=== PATIENT | male | born 1980 | race Caucasian/White ===

== ENCOUNTER 2020-10-13 00:09 | Inpatient (IN) | payer OTHER ==
[2020-10-13] MEDS ORDERED: DEXAMETHASONE SOD PHOSPHATE 10 MG/ML 1 ML VIAL IV STA (00:25)
[2020-10-13] MEDS ORDERED: AMPICILLIN-SULBACTAM 3 GM in SODIUM CHLORIDE 0.9% 100 ML IVPB STA (00:26)
[2020-10-13] MEDS ORDERED: SODIUM CHLORIDE 0.9% 1,000 ML IV STA (00:26)
--- NOTE | 2020-10-13 00:26 | ED ---
ENT HPI - General Chief complaint: ENT Stated complaint: Face abscess Time Seen by Provider: 10/13/20 00:22 Source: patient, RN notes reviewed, old records reviewed Mode of arrival: ambulatory Limitations: no limitations - History of Present Illness Initial comments: This is a 40-year-old male DF for evaluation. Patient recently diagnosed with dental infection and abscess on antibiotics has severe worsening pain and swelling today significant left sided facial swelling eye swelling with tooth pain. No fevers. Able to eat and drink, patient was taking antibiotics without difficulty, does have history of dental caries MD complaint: tooth pain, other (left sided facial swelling) -: days(s) Location: L ear, tooth #, upper lip Severity: severe Severity scale (1-10): 8 Quality: aching Consistency: constant Improves with: none Worsens with: none Context- Dental: history of dental caries Context- Ear: recent illness Associated Symptoms: pain with swallowing - Related Data Allergies Allergy/AdvReac Type Severity Reaction Status Date / Time No Known Allergies Allergy Verified 10/13/20 00:16 Review of Systems ROS Statement: Those systems with pertinent positive or pertinent negative responses have been documented in the HPI. ROS Other: All systems not noted in ROS Statement are negative. Past Medical History Past Medical History: No Reported History History of Any Multi-Drug Resistant Organisms: None Reported Past Surgical History: No Surgical Hx Reported Past Psychological History: PTSD, Schizoaffective Disorder Smoking Status: Current every day smoker Past Alcohol Use History: Rare Past Drug Use History: None Reported General Exam - General Exam Comments Initial Comments: left sided facial edema Limitations: no limitations General appearance: alert, in no apparent distress Head exam: Present: atraumatic, normocephalic, normal inspection Eye exam: Present: normal appearance, PERRL, EOMI. Absent: scleral icterus, conjunctival injection, periorbital swelling ENT exam: Present: normal exam, mucous membranes moist Neck exam: Present: normal inspection. Absent: tenderness, meningismus, lymphadenopathy Respiratory exam: Present: normal lung sounds bilaterally. Absent: respiratory distress, wheezes, rales, rhonchi, stridor Cardiovascular Exam: Present: regular rate, normal rhythm, normal heart sounds. Absent: systolic murmur, diastolic murmur, rubs, gallop, clicks GI/Abdominal exam: Present: soft, normal bowel sounds. Absent: distended, tenderness, guarding, rebound, rigid Extremities exam: Present: normal inspection, full ROM, normal capillary refill. Absent: tenderness, pedal edema, joint swelling, calf tenderness Back exam: Present: normal inspection Neurological exam: Present: alert, oriented X3, CN II-XII intact Psychiatric exam: Present: normal affect, normal mood Skin exam: Present: warm, dry, intact, normal color. Absent: rash Course Vital Signs 10/13/20 00:11 Temperature 97.6 F Pulse Rate 103 H Respiratory 16 Rate Blood Pressure 131/82 O2 Sat by Pulse 97 Oximetry - Reevaluation(s) Reevaluation #1: 10/13/20 00:50 medical record is reviewed Reevaluation #2: 10/13/20 00:51 patient smyptoms minorily improved Reevaluation #3: 10/13/20 03:13 Patient informed results and questions answered - Consultations Consultation #1: Spoke with Dr. Pittman does not think this is a dental disease Consultation #2: Spoke with Dr. Echeverria ENT who will see the patient for Consultation #3: Spokeek with ritchie who will admit the patient Medical Decision Making - Medical Decision Making 40 male DEL with left maxillary abscess and soft tissue facial swelling and edema. Patient will be admitted for IV antibiotics and ENT to evaluate - Lab Data Result diagrams: 10/13/20 00:39 10/13/20 00:39 Lab Results 10/13/20 10/13/20 Range/Units 00:39 00:39 WBC 22.0 H (3.8-10.6) k/uL RBC 5.08 (4.30-5.90) m/uL Hgb 13.5 (13.0-17.5) gm/dL Hct 41.3 (39.0-53.0) % MCV 81.2 (80.0-100.0) fL MCH 26.7 (25.0-35.0) pg MCHC 32.8 (31.0-37.0) g/dL RDW 14.1 (11.5-15.5) % Plt Count 231 (150-450) k/uL MPV 8.7 Neutrophils % 67 % Lymphocytes % 25 % Monocytes % 5 % Eosinophils % 1 % Basophils % 0 % Neutrophils # 14.7 H (1.3-7.7) k/uL Lymphocytes # 5.5 H (1.0-4.8) k/uL Monocytes # 1.0 (0-1.0) k/uL Eosinophils # 0.3 (0-0.7) k/uL Basophils # 0.1 (0-0.2) k/uL Manual Slide Review Performed Large Platelets Present Sodium 138 (137-145) mmol/L Potassium 3.7 (3.5-5.1) mmol/L Chloride 104 (98-107) mmol/L Carbon Dioxide 25 (22-30) mmol/L Anion Gap 9 mmol/L BUN 16 (9-20) mg/dL Creatinine 0.78 (0.66-1.25) mg/dL Est GFR (CKD-EPI)AfAm >90 (>60 ml/min/1.73 sqM) Est GFR (CKD-EPI)NonAf >90 (>60 ml/min/1.73 sqM) Glucose 129 H (74-99) mg/dL Calcium 9.7 (8.4-10.2) mg/dL Phosphorus 3.9 (2.5-4.5) mg/dL Magnesium 2.0 (1.6-2.3) mg/dL C-Reactive Protein 3.1 H (<1.0) mg/dL - Radiology Data Radiology results: report reviewed (CT facial bones does show left maxillary abscess, sinusitis), image reviewed Disposition Clinical Impression: Facial abscess, Cellulitis and abscess of face, Sinusitis Disposition: ADMITTED IP TO THIS [facility] Condition: Good Is patient prescribed a controlled substance at d/c from ED?: No Referrals: Nonstaff,Physician [REFERRING] - 1-2 days
[2020-10-13 01:11] LABS: African American GFR (CKD) >90 (>60 ml/min/1.73 sqM); Anion Gap 9 mmol/L; Blood Urea Nitrogen 16 mg/dL (9-20); C Reactive Protein 3.1 mg/dL (<1.0); Calcium 9.7 mg/dL (8.4-10.2); Carbon Dioxide 25 mmol/L (22-30); Chloride 104 mmol/L (98-107); Glucose 129 mg/dL (74-99); Non-African American GFR(CKD) >90 (>60 ml/min/1.73 sqM); Phosphorus 3.9 mg/dL (2.5-4.5); Potassium 3.7 mmol/L (3.5-5.1); Sodium 138 mmol/L (137-145)
--- NOTE | 2020-10-13 01:45 | CT ---
EXAMINATION TYPE: CT facial bones w con DATE OF EXAM: 10/13/2020 COMPARISON: None HISTORY: left side facial abscess. no prior on PACS CT DLP: 403.1 mGycm Automated exposure control for dose reduction was used. CONTRAST: Performed with IV Contrast, patient injected with 100ml mL of Isovue 300. Images were obtained from the bottom of the mandible to the top of the frontal sinuses with IV contra st. Submandibular salivary glands are symmetric. The mandibular ring is intact. Temporomandibular joints appear normal. Zygomatic arches appear normal. Nasal bone is intact. Maxilla is intact. There is irregular 1.5 cm fluid density focus anterior to the left maxilla near the nose. This is con sistent with an abscess. There is extensive fat stranding in the soft tissues anterior to the left ma xilla and extending superiorly to the left periorbital region. I see no bone destruction of the nasal bone. The parotid glands are symmetric. The orbital margins are intact. There is no retro-orbital mass. The re is some mild mucosal thickening at the floor the left maxillary sinus. There is no evidence of a b lowout fracture. IMPRESSION: Extensive changes on the left side consistent with cellulitis anterior to the left maxilla and left o rbit. There is evidence of a 1.5 cm abscess adjacent to the maxilla near the nose. No bone destructio n seen. No fracture. No retro-orbital abnormality. Minimal left maxillary sinusitis.
[2020-10-13 02:07] LABS: Basophils # (A) 0.1 k/uL (0-0.2); Basophils % (A) 0 %; Eosinophils # (A) 0.3 k/uL (0-0.7); Eosinophils % (A) 1 %; HCT 41.3 % (39.0-53.0); HGB 13.5 gm/dL (13.0-17.5); Lymphocytes # (A) 5.5 k/uL (1.0-4.8); Lymphocytes % (A) 25 %; MCH 26.7 pg (25.0-35.0); MCHC 32.8 g/dL (31.0-37.0); MCV 81.2 fL (80.0-100.0); Mean Platelet Volume 8.7; Monocytes % (A) 5 %; Neutrophils # (A) 14.7 k/uL (1.3-7.7); Neutrophils % (A) 67 %; Platelet Count 231 k/uL (150-450); RBC 5.08 m/uL (4.30-5.90); RDW 14.1 % (11.5-15.5)
[2020-10-13 03:08] LABS: Large Platelets Present
[2020-10-13] MEDS ORDERED: VANCOMYCIN IV PER PHARMACY 1 EACH MISC MISCELLANE PRN (04:04)
--- NOTE | 2020-10-13 04:06 | P.HPIM ---
History of Present Illness H&P Date: 10/13/20 Patient is a 40-year-old male with a PMH of tobacco abuse, schizoaffective disorder, and PTSD who presented to the emergency room with complaints of facial swelling and pain. The patient reports that his symptoms started roughly a week ago, and have gradually progressed. He reports being seen in urgent care facility 5 days ago and was prescribed clindamycin and a course of prednisone. The patient reports that initially his symptoms did improve for 1-2 days after initiation of the above medications but then subsequently began worsening again. At time of interview, he reports a 5 out of 10 left-sided diffuse facial pain. He reports difficulty seeing out of the left eye due to the swelling but is denied blurred vision or eye pain. Denied pain with movement of his left eye. He reports no difficulty with eating or drinking. Denied headaches, weakness, numbness, tingling. Also denied shortness of breath or difficulty swallowing. Reports a history of dental infections. In the emergency room, facial CT revealed cellulitis anterior to the left maxilla and left orbit with a 1.5 cm a bscess adjacent to the maxilla near the nose. No retro-orbital abnormality or bone destruction was seen. Laboratory evaluation was remarkable for WBC count of 22, glucose 129, and CRP of 3.1. Emergency room physician notes that he discussed the case with ENT physician computer numerical control programmer who noted that he will see the patient tomorrow for possible drainage. Review of systems: Pertinent positives and negatives as discussed in HPI, a complete review of systems was performed and all other systems are negative. Physical examination: General: non toxic, no distress, appears at stated age, normal weight Derm: Significant left facial swelling, warm, dry Head: atraumatic, normocephalic, symmetric Eyes: EOMI, anicteric sclera, pupils equal round reactive to light ENT: Nose and ears atraumatic, no thrush, no pharyngeal erythema Neck: No thyromegaly, no cervical lymphadenopathy, trachea midline, supple Mouth: no lip lesion, mucus membranes moist Cardiovascular: S1S2 reg, no murmur, positive posterior tibial pulse bilateral, no edema, capillary refill less than 2 seconds Lungs: CTA bilateral, no rhonchi, no rales , no accessory muscle use Abdominal: soft, nontender to palpation, no guarding, no appreciable organomegaly, normal bowel sounds Ext: no gross muscle atrophy, muscle strength 5 out of 5 in all 4 extremities grossly, no contractures, Neuro: CN II-XI grossly intact, light touch intact all 4 extremities, finger to nose within normal limits, Psych: Alert, oriented, appropriate affect Assessment/plan Sepsis secondary to pre-septal facial cellulitis with abscess -Start vancomycin and continue with Unasyn -ENT consult -Check lactic acid levels -Continue the IV fluids -Follow up blood cultures DVT prophylaxis -Heparin subq The patient is admitted with an anticipated greater than 2 midnight stay for evaluation of facial cellulitis with abscess CODE STATUS: Full Code Discussed with: patient Anticipated discharge date: 2-[address]: Home A total of 45 minutes was spent on the care of this complex patient more than 50% of the time was spent in counseling and care coordination. Past Medical History Past Medical History: No Reported History History of Any Multi-Drug Resistant Organisms: None Reported Past Surgical History: No Surgical Hx Reported Past Psychological History: PTSD, Schizoaffective Disorder Smoking Status: Current every day smoker Past Alcohol Use History: Rare Past Drug Use History: None Reported Medications and Allergies Allergies Allergy/AdvReac Type Severity Reaction Status Date / Time No Known Allergies Allergy Verified 10/13/20 00:16 Physical Exam Vitals: Vital Signs Temp Pulse Resp BP Pulse Ox 10/13/20 00:11 97.6 F 103 H 16 131/82 97 Intake and Output 10/12/20 10/12/20 10/13/20 14:59 22:59 06:59 Other: Weight 70.307 kg Results CBC & Chem 7: 10/13/20 00:39 10/13/20 00:39 Labs: Abnormal Lab Results - Last 24 Hours (Table) 10/13/20 10/13/20 Range/Units 00:39 00:39 WBC 22.0 H (3.8-10.6) k/uL Neutrophils # 14.7 H (1.3-7.7) k/uL Lymphocytes # 5.5 H (1.0-4.8) k/uL Glucose 129 H (74-99) mg/dL C-Reactive Protein 3.1 H (<1.0) mg/dL
[2020-10-13] MEDS: SODIUM CHLORIDE 0.9% 1,000 ML IV SCH ×3 (04:55→23:50)
[2020-10-13] MEDS ORDERED: NALOXONE 0.4 MG/ML 1 ML VIAL IV PRN (04:57)
[2020-10-13] MEDS ORDERED: MORPHINE SULFATE 4 MG/ML SYRINGE IV PRN (04:57)
[2020-10-13] MEDS ORDERED: VANCOMYCIN 1,250 MG in SODIUM CHLORIDE 0.9% 250 ML IVPB ONE (05:00)
[2020-10-13 06:41] LABS: HCT 43.5 % (39.0-53.0); HGB 14.3 gm/dL (13.0-17.5); MCH 26.6 pg (25.0-35.0); MCHC 32.9 g/dL (31.0-37.0); Platelet Count 282 k/uL (150-450); RBC 5.38 m/uL (4.30-5.90); RDW 13.9 % (11.5-15.5); WBC 17.5 k/uL (3.8-10.6)
[2020-10-13 06:54] LABS: African American GFR (CKD) >90 (>60 ml/min/1.73 sqM); Anion Gap 7 mmol/L; Blood Urea Nitrogen 14 mg/dL (9-20); Calcium 9.9 mg/dL (8.4-10.2); Carbon Dioxide 27 mmol/L (22-30); Chloride 108 mmol/L (98-107); Glucose 141 mg/dL (74-99); Non-African American GFR(CKD) >90 (>60 ml/min/1.73 sqM); Potassium 5.3 mmol/L (3.5-5.1); Sodium 142 mmol/L (137-145)
[2020-10-13] MEDS: AMPICILLIN-SULBACTAM 3 GM in SODIUM CHLORIDE 0.9% 100 ML IVPB SCH ×4 (08:45→23:52)
[2020-10-13] MEDS: HEPARIN SODIUM,PORCINE/PF 5,000 UNIT/0.5 ML SYRINGE SQ SCH ×3 (09:26→23:45)
--- NOTE | 2020-10-13 12:23 | P.PN ---
Progress Note - Text Progress Note Date: 10/13/20 I saw and evaluated the patient independently today. I agree with the documented assessment and plan by my colleague earlier this morning. Medication reconciliation is pending medication history
[2020-10-13] MEDS: VANCOMYCIN 1,000 MG in SODIUM CHLORIDE 0.9% 250 ML IVPB SCH ×2 (13:46→21:42)
[2020-10-13] MEDS: DEXAMETHASONE SOD PHOSPHATE 10 MG/ML 1 ML VIAL IV SCH ×2 (16:19→23:44)
[2020-10-13] MEDS: QUEtiapine 100 MG TAB PO SCH (16:20)
[2020-10-13] MEDS: hydrOXYzine HCL 25 MG TAB PO SCH ×2 (16:26→23:44)
[2020-10-13] MEDS: LITHIUM CARBONATE 300 MG CAP PO SCH (16:26)
[2020-10-13] MEDS: QUEtiapine 400 MG TAB PO SCH (20:50)
[2020-10-13] MEDS: clonazePAM 1 MG TAB PO SCH (20:50)
[2020-10-13] MEDS: OXYMETAZOLINE 0.05% NASL SPRAY 1 SPRAY BOTTLE NASAL SCH (20:50)
[2020-10-13] MEDS: LITHIUM CARBONATE ER 450 MG TABLET.ER PO SCH (20:51)
[2020-10-13] MEDS: BENZTROPINE MESYLATE 1 MG TAB PO SCH (20:51)
[2020-10-14] MEDS: VANCOMYCIN 1,000 MG in SODIUM CHLORIDE 0.9% 250 ML IVPB SCH ×2 (04:47→17:12)
--- NOTE | 2020-10-14 06:26 | CONS ---
CONSULTATION DATE OF CONSULTATION: 10/13/2020 REASON FOR CONSULTATION: Left facial abscess. HISTORY OF PRESENT ILLNESS: Patient is a pleasant 40-year-old male who was admitted via [facility] Emergency Room with complaint of left facial swelling and pain. His symptoms began approximately a week ago and at that time he was diagnosed with a dental infection with abscess. He was treated with oral antibiotics, namely Cleocin, and steroids. The patient did well until he ran out of medication. He does not recall how many days he was on the medication. Because of the symptoms coming back and getting worse, he came to [facility] Emergency Room. He was complaining of left facial pain, swelling, and at that time, his left eye was almost swollen shut. He was also complaining of tooth pain in the area of his left upper canine. He was afebrile at the time. His WBC was approximately 22,000 . The ER physician examined him and found that he had the area of tenderness in the region of the left nasal labial fold with firmness and fluctuation. CT scan of the facial bones revealed cellulitis and abscess anterior to left maxillary sinus. There was no evidence any air/fluid level in the left maxillary sinus. I was contacted at approximately 3:00 am by the emergency room doctor. However, the physician's description of the patient's symptoms and his CT scan were somewhat confusing. He thought that the patient had a maxillary sinus abscess. Therefore, I advised the ER physician the best thing would be to admit this patient and place him on an antibiotic. He was placed on Unasyn and vancomycin and admitted to the hospital for definitive treatment. At the at the time that I spoke with the ER physician at 3:00 am in the morning, he did not feel the patient had any carious teeth. However, upon further discussion with the patient, the patient states that he has a history of having multiple dental caries, which he has not had treated. PAST MEDICAL HISTORY: Reveals he has no known allergies. MEDICATIONS: His home medications are mainly psychiatric medications and include Atarax, Klonopin, Seroquel, lithium, and Cogentin. There is no history of asthma, diabetes mellitus, hypertension. REVIEW OF SYSTEMS: Review of systems is noncontributory. PHYSICAL EXAMINATION: This patient is a 40-year-old male who was alert, cooperative and well oriented to time and place. He is in no acute distress at this time. HEENT examination: Patient is normocephalic. Tympanic membranes are normal. There is cerumen in both external auditory canals with the tympanic membranes appear to be normal. Middle ear space is free of any fluid or infection. Pupils equal, round, react to light and accommodation. Extraocular movements within normal limits. Intranasal examination reveals moderate septal deviation with compensatory hypertrophy inferior turbinates. There is no significant swelling intranasally. Examination of oropharynx reveals multiple missing teeth, broken teeth, carious teeth, and heavy plaque. There is tenderness in the region of the left canine fossa with extensive plaque around the left upper canine. In addition, there is a well-circumscribed 1 and half to 2 cm very tender, nonmobile, fluctuant area in the left nasal labial fold. There is left marily-facial swelling and lashawn-orbital edema. Palpation of the neck is negative for any neck masses or lymphadenopathy. Cranial nerves 2 through 12 and remainder of the head and neck exam is unremarkable. CHEST/CARDIOVASCULAR: Left lung field is clear. Right lung field has some scattered wheezes and other harsh lung sounds. (the patient smokes approximately 1 pack of cigarettes per day). The patient is in regular sinus rhythm S1, S2 are present. No murmurs S3s or S4s. ABDOMEN: There is no evidence any masses megaly or tenderness. Abdomen is soft. SKIN is unremarkable. The remainder of physical exam is unremarkable. IMPRESSIONS: Left facial abscess. PLAN: Discussed with the patient that I would like to take him to surgery on 10/14/2020 (time to be determined by the surgery department) for incision and drainage of a left facial abscess. This will be done through a sub labial approach. I advised the patient that most likely the area will be left open to drain and will all be allowed to heal/close naturally. In addition, I am going to place the patient on a burst of steroids, dexamethasone, 10 mg IV q.8 hours x3 doses, followed by 5 mg IV q.8 hours x3 doses, followed by 2 mg IV q.8 hours x2 doses, then stop. Surgery department will contact the floor with respect to the time that the patient will be going to surgery.I'm going to request a consultation with the gema-maxillofacial service regarding the patients broken and carious teeth. MMODL / IJN: [id number] / BETI
[2020-10-14 07:46] LABS: Basophils % (A) 0 %; Eosinophils % (A) 0 %; HGB 12.7 gm/dL (13.0-17.5); Lymphocytes # (A) 1.5 k/uL (1.0-4.8); Lymphocytes % (A) 7 %; MCH 26.5 pg (25.0-35.0); MCHC 32.5 g/dL (31.0-37.0); MCV 81.7 fL (80.0-100.0); Monocytes # (A) 0.4 k/uL (0-1.0); Monocytes % (A) 2 %; Neutrophils # (A) 20.3 k/uL (1.3-7.7); Neutrophils % (A) 91 %; Platelet Count 304 k/uL (150-450); RBC 4.78 m/uL (4.30-5.90); RDW 14.3 % (11.5-15.5); WBC 22.3 k/uL (3.8-10.6)
[2020-10-14 08:27] LABS: ALT 21 U/L (4-49); AST 15 U/L (17-59); African American GFR (CKD) >90 (>60 ml/min/1.73 sqM); Albumin 3.6 g/dL (3.5-5.0); Albumin/Globulin Ratio 1.6; Alkaline Phosphatase 78 U/L (38-126); Anion Gap 7 mmol/L; Blood Urea Nitrogen 16 mg/dL (9-20); Calcium 9.4 mg/dL (8.4-10.2); Carbon Dioxide 26 mmol/L (22-30); Chloride 109 mmol/L (98-107); Globulin 2.3 g/dL; Glucose 134 mg/dL (74-99); Non-African American GFR(CKD) >90 (>60 ml/min/1.73 sqM); Potassium 5.2 mmol/L (3.5-5.1); Sodium 142 mmol/L (137-145); Total Bilirubin <0.1 mg/dL (0.2-1.3); Total Protein 5.9 g/dL (6.3-8.2)
[2020-10-14] MEDS: HEPARIN SODIUM,PORCINE/PF 5,000 UNIT/0.5 ML SYRINGE SQ SCH ×2 (09:09→16:51)
[2020-10-14] MEDS: DEXAMETHASONE SOD PHOSPHATE 10 MG/ML 1 ML VIAL IV SCH ×2 (09:10→17:13)
[2020-10-14] MEDS: OXYMETAZOLINE 0.05% NASL SPRAY 1 SPRAY BOTTLE NASAL SCH ×2 (09:12→20:56)
[2020-10-14] MEDS: AMPICILLIN-SULBACTAM 3 GM in SODIUM CHLORIDE 0.9% 100 ML IVPB SCH ×3 (09:13→20:56)
[2020-10-14] MEDS: BENZTROPINE MESYLATE 1 MG TAB PO SCH ×2 (09:19→20:55)
[2020-10-14] MEDS: hydrOXYzine HCL 25 MG TAB PO SCH ×2 (09:19→16:50)
[2020-10-14] MEDS: LITHIUM CARBONATE 300 MG CAP PO SCH (09:19)
[2020-10-14] MEDS: QUEtiapine 100 MG TAB PO SCH (09:20)
--- NOTE | 2020-10-14 10:01 | CONS ---
CONSULTATION DATE OF CONSULTATION: 10/14/2020 CHIEF COMPLAINT: My face is swollen. HISTORY OF PRESENT ILLNESS: Patient states that the swelling started several days ago and increased progressively and he presented to the [facility] Emergency Room. He was evaluated and was admitted for IV antibiotics and possible surgical intervention. The patient states that he is much better currently with a significant decrease in swelling following the IV antibiotic therapy. The patient is scheduled for an I&D possibly later today with Dr. Lloyd. PAST MEDICAL HISTORY: Significant for anxiety, depression, and bipolar disorder. MEDICATIONS: Include clozapine, Atarax, Cogentin, lithium, Seroquel. He is currently on IV Vanco and ampicillin with dexamethasone. PHYSICAL EXAMINATION: Reveals the patient to have mild soft tissue swelling of the left paranasal infraorbital region which is soft to palpation. It is mildly tender. Intraoral examination reveals necrotic teeth, fractured teeth and carious teeth. There is mild vestibular swelling in the area of tooth #10. There are no other oral lesions or swelling noted. His neck is soft, supple without any lymphadenopathy. His thyroid is midline without any thyromegaly. ASSESSMENT: 1. Left infraorbital space abscess. 2. Necrotic teeth and carious teeth. PLAN: The patient will follow up with me as an outpatient for the extraction of the necessary teeth in my office. The patient will undergo an I&D as necessary per Dr. Echeverria. MMODL / IJN: [id number] /
[2020-10-14] MEDS ORDERED: ONDANSETRON 4 MG/2 ML VIAL ONE (11:54)
[2020-10-14] MEDS ORDERED: VANCOMYCIN TROUGH DUE 1 EACH MISC MISCELLANE ONE (12:00)
[2020-10-14] MEDS ORDERED: LACTATED RINGERS 1,000 ML IV ONE ×3 (12:03→15:05)
[2020-10-14] MEDS ORDERED: ONDANSETRON 4 MG/2 ML VIAL IVP ONE (12:03)
--- NOTE | 2020-10-14 12:19 | P.PN ---
Subjective Progress Note Date: 10/14/20 No new complaints. Plan for I/D today. Objective - Vital Signs Vital signs: Vital Signs Temp 98.2 F 10/14/20 11:59 Pulse 69 10/14/20 11:59 Resp 16 10/14/20 11:59 BP 120/74 10/14/20 11:59 Pulse Ox 96 10/14/20 11:59 Intake & Output 10/13/20 10/14/20 10/14/20 18:59 06:59 18:59 Intake Total 200 Balance 200 Weight 70.307 kg Intake: Oral 200 Other: Voiding Method Toilet Toilet Toilet # Voids 3 2 # Bowel Movements 1 - Exam Gen: awake, alert HEENT: normocephalic, atraumatic, good hearing acuity, moist mucous membranes, asymmetric facial swelling on L > R Resp: good air exchange, breathing comfortably with no accessory muscle use CVS: good distal perfusion x 4, GI: soft, NTTP, ND : no SPT, no CVAT, yoder catheter not present MSK: no pitting edema, no clubbing Neuro: non-focal, moving all extremities Psych: cooperative, euthymic mood - Labs CBC & Chem 7: 10/14/20 06:49 10/14/20 06:49 Labs: Abnormal Lab Results - Last 24 Hours (Table) 10/14/20 10/14/20 Range/Units 06:49 06:49 WBC 22.3 H (3.8-10.6) k/uL Hgb 12.7 L (13.0-17.5) gm/dL Neutrophils # 20.3 H (1.3-7.7) k/uL Potassium 5.2 H (3.5-5.1) mmol/L Chloride 109 H (98-107) mmol/L Glucose 134 H (74-99) mg/dL Total Bilirubin <0.1 L (0.2-1.3) mg/dL AST 15 L (17-59) U/L Total Protein 5.9 L (6.3-8.2) g/dL Microbiology - Last 24 Hours (Table) 10/13/20 00:39 Blood Culture - Preliminary Blood No Growth after 24 hours 10/13/20 00:42 Blood Culture - Preliminary Blood No Growth after 24 hours Assessment and Plan Assessment: Sepsis secondary to pre-septal facial cellulitis with abscess -Start vancomycin and continue with Unasyn -ENT consult, plan for I&D 10/14 -Check lactic acid levels -Continue the IV fluids -Follow up blood cultures = NGTD DVT prophylaxis -Heparin subq The patient is admitted with an anticipated greater than 2 midnight stay for evaluation of facial cellulitis with abscess CODE STATUS: Full Code Discussed with: patient Anticipated discharge date: 2-[address]: Home
[2020-10-14] MEDS ORDERED: LIDOCAINE 1% INJ 10MG/ML (20 ML MDV) ONE (14:34)
[2020-10-14] MEDS ORDERED: SUCCINYLCHOLINE CHLORIDE 100 MG/5 ML SYR IV ONE (14:34)
[2020-10-14] MEDS ORDERED: MIDAZOLAM 2 MG/2 ML VIAL ONE (14:34)
[2020-10-14] MEDS ORDERED: PROPOFOL 10 MG/ML 20 ML VIAL IV ONE (14:34)
[2020-10-14] MEDS ORDERED: HYDROmorphone (PF) 1 MG/ML ONE (14:34)
[2020-10-14] MEDS ORDERED: fentaNYL (PF) 50 MCG/ML 2 ML AMP ONE (14:34)
[2020-10-14] MEDS ORDERED: LIDOCAINE 1%-EPI 1:100,000 20 ML VIAL SUBMUCOSAL ONE ×2 (14:54)
[2020-10-14] MEDS ORDERED: CLINDAMYCIN 150 MG/ML 4 ML VIAL IRRIGATION ONE (15:00)
[2020-10-14] MEDS ORDERED: HYDROmorphone 0.5 MG/0.5 ML SYRINGE IVP ONE ×3 (15:41→16:02)
[2020-10-14] MEDS: SODIUM CHLORIDE 0.9% 1,000 ML IV SCH (16:51)
--- NOTE | 2020-10-14 17:12 | OP ---
OPERATIVE REPORT PREOPERATIVE DIAGNOSIS: Left facial abscess. POSTOPERATIVE DIAGNOSIS: Left facial abscess, cultures pending. ANESTHESIA: General. OPERATIVE PROCEDURE: Incision and drainage of left facial abscess via a sublabial oral approach. (Approximately 25 mL of pus evacuated). OPERATING SURGEON: Dr. Echeverria. COMPLICATIONS: None. ESTIMATED BLOOD LOSS: Less than 5 mL. OPERATIVE PROCEDURE: The patient is placed on the operating table supine position. After uneventful induction and endotracheal intubation, satisfactory general anesthesia was obtained. Next, the patient's left marily face was draped in the usual and customary fashion. Following this, using a pair of [place] retractors, the left buccal sulcus was exposed. A small incision was made in the region of the question. Next, the soft tissues were infiltrated with approximately 3 mL of 1% Xylocaine with epinephrine. Next, using the hot knife, an incision was made in the left canine fossa through mucous membrane subcutaneous fat down to the level of the periosteum. Hemostasis was obtained using electrocautery. Next the periosteum was sharply incised using a [place]. Following this, the soft tissue elevated off the anterior wall of the left maxillary sinus. Immediately the abscess cavity was encountered and copious amounts of purulent material poured from it. A culture was taken to be sent for culturing for aerobes and anaerobes. The abscess cavity was evacuated with suction and was subsequently irrigated with combination of saline and Cleocin HCL 900 mg. Further inspection and probing with a curved hemostat did not reveal revealed any additional abscess pockets. Therefore, the buccal incision was closed loosely with several 4-0 chromic sutures in interrupted fashion. The most lateral portion of the incision was left open for future drainage. Estimated blood loss less than 5 mL. Approximately 25 mL of purulent material was evacuated from the abscess cavity. At this point, the procedure was terminated. There were no intraoperative complications. Patient tolerated the procedure well and was returned to recovery room and will be returned to the hospital floor. The patient tolerated the procedure well and was returned to recovery room in satisfactory condition. MMODL / IJN: [id number] /
[2020-10-14] MEDS: VANCOMYCIN 1,250 MG in SODIUM CHLORIDE 0.9% 250 ML IVPB SCH (18:16)
[2020-10-14] MEDS: LITHIUM CARBONATE ER 450 MG TABLET.ER PO SCH (20:55)
[2020-10-14] MEDS: clonazePAM 1 MG TAB PO SCH (20:55)
[2020-10-14] MEDS: QUEtiapine 400 MG TAB PO SCH (20:55)
[2020-10-15] MEDS: AMPICILLIN-SULBACTAM 3 GM in SODIUM CHLORIDE 0.9% 100 ML IVPB SCH ×4 (00:18→19:28)
[2020-10-15] MEDS: DEXAMETHASONE SOD PHOSPHATE 10 MG/ML 1 ML VIAL IV SCH ×2 (00:18→08:46)
[2020-10-15] MEDS: HEPARIN SODIUM,PORCINE/PF 5,000 UNIT/0.5 ML SYRINGE SQ SCH ×4 (00:18→23:15)
[2020-10-15] MEDS: hydrOXYzine HCL 25 MG TAB PO SCH ×4 (00:18→23:15)
[2020-10-15] MEDS: SODIUM CHLORIDE 0.9% 1,000 ML IV SCH ×3 (00:19→17:10)
[2020-10-15] MEDS: VANCOMYCIN 1,250 MG in SODIUM CHLORIDE 0.9% 250 ML IVPB SCH ×3 (02:10→17:05)
[2020-10-15] MEDS: BENZTROPINE MESYLATE 1 MG TAB PO SCH ×2 (08:54→20:49)
[2020-10-15] MEDS: LITHIUM CARBONATE 300 MG CAP PO SCH (08:54)
[2020-10-15] MEDS: QUEtiapine 100 MG TAB PO SCH (08:56)
[2020-10-15] MEDS: OXYMETAZOLINE 0.05% NASL SPRAY 1 SPRAY BOTTLE NASAL SCH ×2 (08:56→20:50)
--- NOTE | 2020-10-15 13:56 | P.PN ---
Subjective Progress Note Date: 10/15/20 Hospital course: Patient is a 40-year-old male with a past medical history of schizoaffective disorder, PTSD, and tobacco dependency who presented to the hospital on 10/13/20 for facial swelling and pain resulting in diagnosis of facial cellulitis with abscess. Patient was admitted under our services with consultation to ENT specialist. CT facial bones with contrast consistent for cellulitis anterior to the left maxilla and left orbit with evidence of a 1.5 cm abscess adjacent to the maxilla. Patient was taken to OR by ENT specialist, Dr. Echeverria on 10/14/20 for I&D of facial abscess. Wound cultures and blood cultures remain negative at this time. Patient treated with IV antibiotics Unasyn and vancomycin. Physical exam: Patient was seen and fully evaluated at the bedside this morning. He continues to have mild swelling surrounding his left orbital region and left cheek. Patient reports significant improvement of pain and discomfort since I&D was completed yesterday. Patient denies having any headache, lightheadedness, dizziness, changes in his vision, changes in hearing, dysphagia, chest pain, p alpitations, or shortness of breath. Patient remains afebrile with vital signs stable. General: non toxic, no distress, appears at stated age Derm: warm, dry Head: atraumatic, normocephalic, symmetric Eyes: EOMI, no lid lag, anicteric sclera Mouth: no lip lesion, mucus membranes moist Cardiovascular: S1S2 reg, no murmur, positive posterior tibial pulse bilateral, Lungs: CTA bilateral, no rhonchi, no rales , no accessory muscle use Abdominal: soft, nontender to palpation, no guarding, no appreciable organomegaly Ext: no gross muscle atrophy, no edema, no contractures Neuro: CN II-XI grossly intact, no focal neuro deficits Psych: Alert, oriented, appropriate affect Assessment and Plan of care: Sepsis secondary to preseptal facial cellulitis with abscess -CT facial bones with contrast consistent for cellulitis anterior to the left maxilla and left orbit with evidence of a 1.5 cm abscess adjacent to the maxilla. -Patient was taken to OR by ENT specialist, Dr. Echeverria on 10/14/20 for I&D of facial abscess. -Wound cultures and blood cultures remain negative at this time. -Continue treatment with IV antibiotics Unasyn and vancomycin. Schizoaffective disorder and PTSD -Continue daily medication regimen with Cogentin, hydroxyzine, lithium, and Seroquel. CODE STATUS: Full code DVT prophylaxis: Heparin Discussed with: Patient and RN Anticipated discharge date: Likely home with oral antibiotics tomorrow Anticipated discharge place: Home A total of 45 minutes was spent on the care of this complex patient more than 50% of the time was spent in counseling and care coordination. Objective - Vital Signs Vital signs: Vital Signs Temp 98.0 F 10/15/20 07:44 Pulse 76 10/15/20 07:44 Resp 18 10/15/20 09:11 BP 102/64 10/15/20 07:44 Pulse Ox 94 L 10/15/20 07:44 Intake & Output 10/14/20 10/15/20 10/15/20 18:59 06:59 18:59 Intake Total 1200 200 Output Total 5 Balance 1195 200 Weight 70.307 kg Intake: IV 1100 Oral 100 200 Output: Estimated Blood Loss 5 Other: Voiding Method Toilet Toilet Toilet # Voids 3 2 - Labs CBC & Chem 7: 10/14/20 06:49 10/14/20 06:49 Labs: Microbiology - Last 24 Hours (Table) 10/11/20 15:16 Gram Stain - Preliminary Face Wound Culture - Preliminary 10/13/20 00:42 Blood Culture - Preliminary Blood No Growth after 48 hours 10/13/20 00:39 Blood Culture - Preliminary Blood No Growth after 48 hours 10/11/20 15:16 Anaerobic Culture - Preliminary Face
[2020-10-15] MEDS: DEXAMETHASONE SOD PHOSPHATE 4 MG/ML 1 ML VIAL IVP SCH ×2 (15:01→23:16)
[2020-10-15] MEDS ORDERED: CALCIUM CARBONATE 500 MG CHEWABLE PO PRN (16:23)
[2020-10-15] MEDS: QUEtiapine 400 MG TAB PO SCH (20:49)
[2020-10-15] MEDS: LITHIUM CARBONATE ER 450 MG TABLET.ER PO SCH (20:49)
[2020-10-15] MEDS: clonazePAM 1 MG TAB PO SCH (20:49)
--- NOTE | 2020-10-15 22:57 | PN ---
PROGRESS NOTE DATE OF SERVICE: 10/15/2020 SUBJECTIVE: Vital signs are stable. The patient is 1 day status post incision and drainage of left facial abscess via a sublabial approach. The patient is doing well and states that his pain has decreased dramatically. OBJECTIVE: Examination of the oropharynx reveals that in the upper left buccal area, the patient's incision was intentionally left partially open to allow for drainage. There are several 4-0 chromic interrupted sutures in place at the most medial aspect of the incision. I do not see any evidence of any significant drainage from this area. The patient's left facial/periorbital edema has significantly decreased. The remainder of the head and neck exam and physical exam is unchanged since last visit. ASSESSMENT: Status post incision and drainage of left facial abscess via a sublabial approach. PLAN: Recommend continuing with the current course of intravenous antibiotics. From an ENT standpoint, this patient could be discharged home on oral antibiotics tomorrow (10/16/2020). I would recommend he be discharged on Cleocin capsules 150 mg, 2 p.o. t.i.d. until gone, #60. I do not feel he will need any specific pain medication and should to do well just taking [id number] pain relievers such as Tylenol or ibuprofen. I have cautioned the patient not to continuously lick his suture area. I also advised him that after each meal he should rinse and swish water around in his mouth to dislodge any food particles that might lodge in the buccal area. He has seen Dr. Pittman and his poor state of dentition will be addressed on an outpatient basis. I advised the patient that he may unfortunately lose the majority of his upper teeth, which are in very poor condition. I would like to see the patient in my office in approximately 2 weeks. The nursing staff can call my office tomorrow on 10/16/2020, before 1:00 p.m., and they will schedule an appointment for the patient. Again, my opinion is that this gentleman's abscess was initiated by a dental infection, most likely involving the left upper incisor. MMODL / IJN: [id number] / BETI
[2020-10-16] MEDS: AMPICILLIN-SULBACTAM 3 GM in SODIUM CHLORIDE 0.9% 100 ML IVPB SCH ×2 (00:35→06:10)
[2020-10-16] MEDS: SODIUM CHLORIDE 0.9% 1,000 ML IV SCH (02:46)
[2020-10-16] MEDS: VANCOMYCIN 1,250 MG in SODIUM CHLORIDE 0.9% 250 ML IVPB SCH ×2 (02:49→09:57)
[2020-10-16] MEDS: hydrOXYzine HCL 25 MG TAB PO SCH (07:46)
[2020-10-16] MEDS: HEPARIN SODIUM,PORCINE/PF 5,000 UNIT/0.5 ML SYRINGE SQ SCH (07:47)
[2020-10-16] MEDS: LITHIUM CARBONATE 300 MG CAP PO SCH (08:45)
[2020-10-16] MEDS: BENZTROPINE MESYLATE 1 MG TAB PO SCH (08:45)
[2020-10-16] MEDS: QUEtiapine 100 MG TAB PO SCH (08:46)
[2020-10-16] MEDS: OXYMETAZOLINE 0.05% NASL SPRAY 1 SPRAY BOTTLE NASAL SCH (08:47)
[2020-10-16] MEDS ORDERED: VANCOMYCIN TROUGH DUE 1 EACH MISC MISCELLANE ONE (09:00)
[2020-10-16 09:06] LABS: African American GFR (CKD) >90 (>60 ml/min/1.73 sqM); Non-African American GFR(CKD) >90 (>60 ml/min/1.73 sqM)
--- NOTE | 2020-10-16 11:02 | P.DS ---
Providers Date of admission: 10/13/20 04:57 Expected date of discharge: 10/16/20 Attending physician: Benita Johnson MD Consults: 10/13/20 04:58 Consult Physician Routine Consulting Provider: Fabian Echeverria Consult Reason/Comments: abscess Do you want consulting provider notified?: Yes 10/14/20 08:00 Consult Physician Routine Consulting Provider: Danny Pittman Consult Reason/Comments: dental caries,broken teeth,abscess tooth Do you want consulting provider notified?: Yes Primary care physician: Stated None Hospital Course: Discharge Diagnosis: Sepsis secondary to preseptal facial cellulitis with abscess Dental caries Schizoaffective disorder PTSD Hospital course: Patient is a 40-year-old male with a past medical history of schizoaffective disorder, PTSD, and tobacco dependency who presented to the hospital on 10/13/20 for facial swelling and pain resulting in diagnosis of facial cellulitis with abscess. Patient was admitted under our services with consultation to ENT specialist. CT facial bones with contrast consistent for cellulitis anterior to the left maxilla and left orbit with evidence of a 1.5 cm abscess adjacent to the maxilla. Patient was taken to OR by ENT specialist, Dr. Echeverria on 10/14/20 for I&D of facial abscess. Wound cultures and blood cultures negative. Patient was treated with IV antibiotics Unasyn and vancomycin and is being discharged home on Cleocin 300 mg every 8 hours x 10 days as advised by ENT specialist. Patient to follow-up outpatient as discussed with ENT specialist, Dr. Echeverria and once he has finished complete course of antibiotics he will also need to follow up with oral surgeon as discussed. Patient stable for discharge home at this time. Physical exam: Patient was seen and fully evaluated at the bedside this morning. Swelling has nearly completely resolved with complete resolution of erythema. Patient reports pain and discomfort controlled. He denies having any headache, lightheadedness, dizziness, changes in vision or hearing, dysphasia, chest pain, palpitations, or shortness of breath. Vital signs stable. Patient stable for discharge at this time. General: non toxic, no distress, appears at stated age Derm: warm, dry Head: atraumatic, normocephalic, symmetric Eyes: EOMI, no lid lag, anicteric sclera Mouth: no lip lesion, mucus membranes moist Cardiovascular: S1S2 reg, no murmur, positive posterior tibial pulse bilateral, Lungs: CTA bilateral, no rhonchi, no rales , no accessory muscle use Abdominal: soft, nontender to palpation, no guarding, no appreciable organomegaly Ext: no gross muscle atrophy, no edema, no contractures Neuro: CN II-XI grossly intact, no focal neuro deficits Psych: Alert, oriented, appropriate affect A total of 45 minutes of time were spent preparing this complex discharge summary. Patient Condition at Discharge: Good Plan - Discharge Summary Discharge Rx Participant: No New Discharge Prescriptions: Continue clonazePAM [KlonoPIN] 1 mg PO HS [place] Carbonate [[place] Carbonate ER] 450 mg PO HS [place] Carbonate 300 mg PO DAILY hydrOXYzine HCL [Atarax] 50 mg PO Q8H QUEtiapine [SEROquel] 400 mg PO HS QUEtiapine [SEROquel] 100 mg PO DAILY Benztropine Mesylate [Cogentin] 2 mg PO BID Changed clindamycin HCL [Cleocin] 300 mg PO Q8H 10 Days #30 cap Discharge Medication List Benztropine Mesylate [Cogentin] 2 mg PO BID 10/13/20 [History] [place] Carbonate 300 mg PO DAILY 10/13/20 [History] [place] Carbonate [[place] Carbonate ER] 450 mg PO HS 10/13/20 [History] QUEtiapine [SEROquel] 100 mg PO DAILY 10/13/20 [History] QUEtiapine [SEROquel] 400 mg PO HS 10/13/20 [History] clonazePAM [KlonoPIN] 1 mg PO HS 10/13/20 [History] hydrOXYzine HCL [Atarax] 50 mg PO Q8H 10/13/20 [History] clindamycin HCL [Cleocin] 300 mg PO Q8H 10 Days #30 cap 10/16/20 [Rx] Follow up Appointment(s)/Referral(s): Fabian Echeverria MD [STAFF PHYSICIAN] - 10/30/20 10:30 am [facility],Clinic [REFERRING] - 1-2 Days Activity/Diet/Wound Care/Special Instructions: Special Instructions: Please take entire course of antibiotics as prescribed without missing any doses. You may take [id number] acetaminophen and/or ibuprofen for pain/discomfort. It is important to rinse mouth after each meal to clear any food particles from buccal area. You will need to follow up with Dr. Echeverria, ENT specialist in 2 weeks as he discussed with you. Discharge Disposition: HOME SELF-CARE
[2020-10-16 12:13] VITALS: BP 133/73; PULSE 80; RESP 17; TEMP 97.7
== END 2020-10-16 13:16 | disposition home or self-care (01) | DRG 854 ==
LOC: EC 00:09 → 4SSUR 04:57
PROVIDERS: ADMIT Internal Medicine; ATTEND Internal Medicine
PROC: 0W930ZZ Drainage of Oral Cavity and Throat, Open Approach (ICD-10-PCS; principal; 2020-10-14 08:20)
DX: A41.9 Sepsis, unspecified organism (principal); L03.211 Cellulitis of face; L02.01 Cutaneous abscess of face; F25.9 Schizoaffective disorder, unspecified; F17.200 Nicotine dependence, unspecified, uncomplicated; F31.9 Bipolar disorder, unspecified; K02.9 Dental caries, unspecified; F43.10 Post-traumatic stress disorder, unspecified; K04.1 Necrosis of pulp; F41.9 Anxiety disorder, unspecified; Z79.899 Other long term (current) drug therapy
CPT/HCPCS: 36415; 70487; 80048; 80053; 80202; 82565; 83605; 83735; 84100; 85025; 85027; 86140; 87040; 87070; 87075; 87205; 96365; 96375; 99285